=== PATIENT | female | born 1965 | race Caucasian/White ===

== ENCOUNTER 2017-02-18 08:37 | Day surgery (SDC) | payer BC ==
--- NOTE | ~2017-02-18 | EGD ---
EGD REPORT [facility] [address] [address] NAME: ANUPAM ROSALES : [birth year] STATUS : REG [facility]#: [id number] AGE: 51 ADM/REG DATE : 02/18/17 MR#: [id number] REPORT SERV DATE: 02/18/17 DICTATED BY: OSWALDO ALONSO DATE: 02/18/17 REPORT STATUS : Draft TRANSCRIBED BY: [facility] DATE: 02/18/17 Endoscopy Center Patient Name: Nava Rosales Date of : 1965 Attending MD: OSWALDO ALONSO MD Procedure Date No Time: 02/18/2017 Procedure: Upper GI endoscopy Indications: Epigastric abdominal pain, Diarrhea Referring MD: Gena Samaniego Medicines: Propofol per Anesthesia Complications: No immediate complications. Procedure: Pre-Anesthesia Assessment: - ASA Grade Assessment: III - A patient with severe systemic disease. After obtaining informed consent, the endoscope was passed under direct vision. Throughout the procedure, the patient's blood pressure, pulse, and oxygen saturations were monitored continuously. The GIF H190 [id number] was introduced through the mouth, and advanced to the second part of duodenum. The upper GI endoscopy was accomplished without difficulty. The patient tolerated the procedure well. Findings: A medium-sized hiatus hernia was present. Diffuse moderate inflammation characterized by erosions, erythema and friability was found in the stomach. Biopsies were taken with a cold forceps for histology. The examined duodenum was normal. Impression: - Hiatus hernia. - Chronic gastritis. Biopsied. - Normal examined duodenum. Recommendation: - Discharge patient to home (ambulatory). Procedure Code(s): --- Professional --- 33502, Esophagogastroduodenoscopy, flexible, transoral; with biopsy, single or multiple Diagnosis Code(s): --- Professional --- K44.9, Diaphragmatic hernia without obstruction or gangrene K29.50, Unspecified chronic gastritis without bleeding R10.13, Epigastric pain EGD REPORT [facility] [address] [place] [address] [place] [address] NAME: ANUPAM ROSALES : [birth year] STATUS : REG [facility] [place] PAT#: [id number] AGE: 51 ADM/REG DATE : 02/18/17 MR#: [id number] REPORT SERV DATE: 02/18/17 DICTATED BY: OSWALDO ALONSO. DATE: 02/18/17 REPORT STATUS : Draft TRANSCRIBED BY: [facility] DATE: 02/18/17 R19.7, Diarrhea, unspecified CPT copyright 2013 [employer]. All rights reserved. The codes documented in this report are preliminary and upon clinical coder review may be revised to meet current compliance requirements. Oswaldo Alonso MD OSWALDO ALONSO MD 02/18/2017 10:05 AM This report has been signed electronically. Number of Addenda: 0 Note Initiated On: 02/18/2017 9:54 AM Scope Withdrawal Time 0 hours 0 minutes 0 seconds [address] [facility] [place] [address]
--- NOTE | ~2017-02-18 | EGD ---
EGD REPORT [facility] [address] [address] NAME: ANUPAM ROSALES : [birth year] STATUS : REG [facility]#: [id number] AGE: 51 ADM/REG DATE : 02/18/17 MR#: [id number] REPORT SERV DATE: 02/18/17 DICTATED BY: OSWALDO ALONSO DATE: 02/18/17 REPORT STATUS : Draft TRANSCRIBED BY: [facility] DATE: 02/18/17 Endoscopy Center Patient Name: Nava Rosales Date of : 1965 Attending MD: OSWALDO ALONSO MD Procedure Date No Time: 02/18/2017 Procedure: Colonoscopy Indications: Generalized abdominal pain, Chronic diarrhea Referring MD: Gena Samaniego Medicines: Propofol per Anesthesia Complications: No immediate complications. Procedure: Pre-Anesthesia Assessment: - ASA Grade Assessment: III - A patient with severe systemic disease. After I obtained informed consent, the scope was passed under direct vision. Throughout the procedure, the patient's blood pressure, pulse, and oxygen saturations were monitored continuously. The PCF [id number] was introduced through the anus and advanced to the cecum, identified by appendiceal orifice and ileocecal valve. The colonoscopy was performed without difficulty. The patient tolerated the procedure well. The quality of the bowel preparation was good. Findings: The perianal and digital rectal examinations were normal. The colon (entire examined portion) appeared normal. Biopsies were taken with a cold forceps for histology. Biopsies were taken with a cold forceps for histology. Internal hemorrhoids were found during retroflexion and were Grade I (internal hemorrhoids that do not prolapse). Impression: - The entire examined colon is normal. Biopsied. - Internal hemorrhoids. Recommendation: - Discharge patient to home (ambulatory). - Return to nurse practitioner in 3 weeks. Procedure Code(s): --- Professional --- 77830, Colonoscopy, flexible, proximal to splenic flexure; with biopsy, single or multiple Diagnosis Code(s): --- Professional --- K64.0, First degree hemorrhoids R10.84, Generalized abdominal pain EGD REPORT [facility] [address] [facility] [place]. [address] NAME: ANUPAM ROSALES : [birth year] STATUS : REG [facility] PAT#: [id number] AGE: 51 ADM/REG DATE : 02/18/17 MR#: [id number] REPORT SERV DATE: 02/18/17 DICTATED BY: OSWALDO ALONSO. DATE: 02/18/17 REPORT STATUS : Draft TRANSCRIBED BY: [employer] DATE: 02/18/17 K52.9, Noninfective gastroenteritis and colitis, unspecified CPT copyright 2013 [employer]. All rights reserved. The codes documented in this report are preliminary and upon joint creaser review may be revised to meet current compliance requirements. Oswaldo Alonso MD OSWALDO ALONSO MD 02/18/2017 10:16 AM This report has been signed electronically. Number of Addenda: 0 Note Initiated On: 02/18/2017 9:47 AM Scope Withdrawal Time 0 hours 6 minutes 8 seconds [address] [facility] [address] [place] [address]
[~2017-02-18 08:37] MED LIST: ASA5GR PO; CELEXA20 PO; CLINDA150 PO; DURA50 TOP; FIORICET 50-301 EACH PO; FLOVENT220 INH; FOSAMAX35 MG PO; LAMICTAL10 PO; PROAIR HFA INH; X5 PO
== END 2017-02-18 23:59 | disposition home or self-care (01) ==
LOC: DMU 08:37
PROVIDERS: Internal Medicine Gastroenterology
PROC: 0DBE8ZX Excision of Large Intestine, Via Natural or Artificial Opening Endoscopic, Diagnostic (ICD-10-PCS; principal; 2017-02-18 10:00)
PROC: 0DB68ZX Excision of Stomach, Via Natural or Artificial Opening Endoscopic, Diagnostic (ICD-10-PCS; 2017-02-18 10:00)
DX: K64.8 Other hemorrhoids (principal); K44.9 Diaphragmatic hernia without obstruction or gangrene; K29.50 Unspecified chronic gastritis without bleeding; K57.90 Diverticulosis of intestine, part unspecified, without perforation or abscess without bleeding; G51.0 Bell's palsy; J44.9 Chronic obstructive pulmonary disease, unspecified; J45.909 Unspecified asthma, uncomplicated; M81.0 Age-related osteoporosis without current pathological fracture; F31.9 Bipolar disorder, unspecified; F41.9 Anxiety disorder, unspecified; F17.210 Nicotine dependence, cigarettes, uncomplicated; Z88.5 Allergy status to narcotic agent; Z88.8 Allergy status to other drugs, medicaments and biological substances; Z79.51 Long term (current) use of inhaled steroids; Z79.82 Long term (current) use of aspirin; Z79.2 Long term (current) use of antibiotics; Z79.899 Other long term (current) drug therapy; Z86.79 Personal history of other diseases of the circulatory system; Z86.73 Personal history of transient ischemic attack (TIA), and cerebral infarction without residual deficits; Z85.3 Personal history of malignant neoplasm of breast; Z90.12 Acquired absence of left breast and nipple; Z90.710 Acquired absence of both cervix and uterus; Z90.49 Acquired absence of other specified parts of digestive tract; Z98.890 Other specified postprocedural states
CPT/HCPCS: 88305